=== PATIENT | female | born 1975 | race American Indian/Alaskan Native ===

== ENCOUNTER 2021-10-29 17:26 | Emergency (ER) | payer MEDICAID ==
[2021-10-29] MEDS ORDERED: oxyCODONE /ACETAMINOPHEN 5-325MG TAB PO ONE (21:54)
[2021-10-29] MEDS ORDERED: KETOROLAC 10 MG TAB PO ONE (21:54)
[2021-10-29] MEDS ORDERED: CYCLOBENZAPRINE 10 MG TAB PO ONE (21:54)
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
[2021-10-29 23:10] VITALS: BP 140/70
== END 2021-10-29 23:11 | disposition home or self-care (01) ==
LOC: ED 17:26
DX: M54.50 Low back pain, unspecified (principal); M79.661 Pain in right lower leg; V89.2XXA Person injured in unspecified motor-vehicle accident, traffic, initial encounter; Y93.89 Activity, other specified; Y92.89 Other specified places as the place of occurrence of the external cause; Y99.8 Other external cause status
CPT/HCPCS: 99283